=== PATIENT | female | born 1990 | race Caucasian/White ===

== ENCOUNTER 2017-01-18 21:01 | Emergency (ER) | payer OTHER ==
[2017-01-18] MEDS ORDERED: SODIUM CHLORIDE 0.9% 1,000 ML IV STA (21:40)
[2017-01-18 22:05] LABS: Appearance,Urine Cloudy (Clear); Bilirubin,Urine Negative (Negative); Glucose,Urine (UA) Negative (Negative); Ketones,Urine Negative (Negative); Leukocyte Esterase,Urine Negative (Negative); Mucus,Urine Rare /hpf; Nitrite,Urine Negative (Negative); Particle Count 5043; Protein,Urine Negative (Negative); RBC,Urine 1 /hpf (0-5); Specific Gravity,Urine 1.015 (1.001-1.035); Squamous Epithelial Cell,Urine 11 /hpf (0-4); UA Billing (MACRO vs. MICRO) MICRO; Urobilinogen,Urine <2.0 mg/dL (<2.0); WBC,Urine 1 /hpf (0-5)
[2017-01-18 22:12] LABS: Basophils # (A) 0.1 k/uL (0-0.2); Basophils % (A) 1 %; CH 32.4; CHCM 35.2; Eosinophils # (A) 0.5 k/uL (0-0.7); Eosinophils % (A) 4 %; HCT 38.5 % (34.0-46.0); HGB 13.1 gm/dL (11.4-16.0); Luc # (Auto) 0.18; Luc % (Auto) 2; Lymphocytes # (A) 2.7 k/uL (1.0-4.8); Lymphocytes % (A) 21 %; MCH 31.5 pg (25.0-35.0); MCHC 34.1 g/dL (31.0-37.0); MCV 92.5 fL (80.0-100.0); Mean Platelet Volume 8.1; Monocytes # (A) 0.5 k/uL (0-1.0); Monocytes % (A) 4 %; Neutrophils # (A) 8.5 k/uL (1.3-7.7); Neutrophils % (A) 68 %; RBC 4.16 m/uL (3.80-5.40); RDW 13.3 % (11.5-15.5); WBC 12.4 k/uL (3.8-10.6); WBC (Perox) 12.51
--- NOTE | 2017-01-18 22:13 | ED ---
General Adult HPI - General Chief complaint: Abdominal Pain Stated complaint: left flank pain; 14 weeks Time Seen by Provider: 01/18/17 21:32 Source: patient, RN notes reviewed Mode of arrival: ambulatory Limitations: no limitations - History of Present Illness Initial comments: 26-year-old female presents to the emergency department with a chief complaint of left upper quadrant abdominal pain. Patient states this started today. Patient states just this aching pain and left upper quadrant. Patient states she had a normal bowel movement today. There is no nausea or vomiting. Patient states she is 14 weeks she has had a confirmed IUP. She denies any lower abdominal cramping any vaginal bleeding. She denies any nausea or vomiting. Patient was concerned due to her symptoms so she thought that she should be evaluated. Patient denies any recent fever, chills, shortness of breath, chest pain, back pain, nausea vomiting, numbness or tingling, dysuria or hematuria, constipation or diarrhea, headaches or visual changes, or any other current symptoms. - Related Data Home Medications Medication Instructions Recorded Confirmed No Known Home Medications [No 01/18/17 01/18/17 Known Home Medications] Allergies Allergy/AdvReac Type Severity Reaction Status Date / Time No Known Allergies Allergy Verified 01/18/17 21:04 Review of Systems ROS Statement: Those systems with pertinent positive or pertinent negative responses have been documented in the HPI. ROS Other: All systems not noted in ROS Statement are negative. Past Medical History Past Medical History: No Reported History History of Any Multi-Drug Resistant Organisms: None Reported Past Surgical History: No Surgical Hx Reported Past Psychological History: No Psychological Hx Reported Smoking Status: Current every day smoker Past Alcohol Use History: None Reported Past Drug Use History: Marijuana General Exam - General Exam Comments Initial Comments: General: The patient is awake and alert, in no distress, and does not appear acutely ill. Eye: Pupils are equal, round and reactive to light, extra-ocular movements are intact; there is normal conjunctiva bilaterally. No signs of icterus. Ears, nose, mouth and throat: There are moist mucous membranes and no oral lesions. Neck: The neck is supple, there is no tenderness. Cardiovascular: There is a regular rate and rhythm. No murmur, rub or gallop is appreciated. Respiratory: Lungs are clear to auscultation, respirations are non-labored, breath sounds are equal. No wheezes, stridor, rales, or rhonchi. Gastrointestinal: Soft, non-distended, non-tender abdomen without masses or organomegaly noted. There is no rebound or guarding present. No CVA tenderness. Bowel sounds are unremarkable. Back: There is no tenderness to palpation in the midline. There is no obvious deformity. No rashes noted. Musculoskeletal: Normal ROM, no tenderness, There is no pedal edema. There is no calf tenderness or swelling. Sensation intact. Pulses equal bilaterally 2+. Neurological: CN II-XII intact, There are no obvious motor or sensory deficits. Coordination appears grossly intact. Speech is normal. Skin: Skin is warm and dry and no rashes or lesions are noted. Psychiatric: Cooperative, appropriate mood & affect, normal judgment. Limitations: no limitations Course Vital Signs 01/18/17 01/18/17 21:04 22:18 Temperature 98.6 F 98.1 F Pulse Rate 100 75 Respiratory 20 16 Rate Blood Pressure 170/77 119/64 O2 Sat by Pulse 100 97 Oximetry Medical Decision Making - Medical Decision Making 26-year-old female presents emergency room chief complaint of left upper quadrant abdominal pain. At this time patient's lab work is been reviewed. At this time we did discuss possible causes of the patient's abdominal pain. At this time we discussed. With her RO[facility] CONSULTANT as well as a family care doctor return parameters all the questions. She stated that she understood. Plan. This time she will be discharged home. - Lab Data Result diagrams: 01/18/17 22:02 01/18/17 22:02 Lab Results 01/18/17 01/18/17 01/18/17 Range/Units 21:57 22:02 22:02 WBC 12.4 H (3.8-10.6) k/uL RBC 4.16 (3.80-5.40) m/uL Hgb 13.1 (11.4-16.0) gm/dL Hct 38.5 (34.0-46.0) % MCV 92.5 (80.0-100.0) fL MCH 31.5 (25.0-35.0) pg MCHC 34.1 (31.0-37.0) g/dL RDW 13.3 (11.5-15.5) % Plt Count 246 (150-450) k/uL Neutrophils % 68 % Lymphocytes % 21 % Monocytes % 4 % Eosinophils % 4 % Basophils % 1 % Neutrophils # 8.5 H (1.3-7.7) k/uL Lymphocytes # 2.7 (1.0-4.8) k/uL Monocytes # 0.5 (0-1.0) k/uL Eosinophils # 0.5 (0-0.7) k/uL Basophils # 0.1 (0-0.2) k/uL Sodium 138 (137-145) mmol/L Potassium 4.0 (3.5-5.1) mmol/L Chloride 108 H (98-107) mmol/L Carbon Dioxide 18 L (22-30) mmol/L Anion Gap 12 mmol/L BUN 6 L (7-17) mg/dL Creatinine 0.40 L (0.52-1.04) mg/dL Est GFR (MDRD) Af Amer >60 (>60 ml/min/1.73 sqM) Est GFR (MDRD) Non-Af >60 (>60 ml/min/1.73 sqM) Glucose 102 H (74-99) mg/dL Calcium 9.7 (8.4-10.2) mg/dL Total Bilirubin 0.2 (0.2-1.3) mg/dL AST 14 (14-36) U/L ALT 34 (9-52) U/L Alkaline Phosphatase 36 L (38-126) U/L Total Protein 6.6 (6.3-8.2) g/dL Albumin 3.9 (3.5-5.0) g/dL Amylase 31 (30-110) U/L Lipase 49 (23-300) U/L Urine Color Yellow Urine Appearance Cloudy H (Clear) Urine pH 6.0 (5.0-8.0) Ur Specific [place] 1.015 (1.001-1.035) Urine Protein Negative (Negative) Urine Glucose (UA) Negative (Negative) Urine Ketones Negative (Negative) Urine Blood Negative (Negative) Urine Nitrite Negative (Negative) Urine Bilirubin Negative (Negative) Urine Urobilinogen <2.0 (<2.0) mg/dL Ur Leukocyte Esterase Negative (Negative) Urine RBC 1 (0-5) /hpf Urine WBC 1 (0-5) /hpf Ur Squamous Epith Cells 11 H (0-4) /hpf Urine Mucus Rare H (None) /hpf Disposition Clinical Impression: Left upper quadrant abdominal pain of unknown etiology Disposition: HOME SELF-CARE Condition: Stable Instructions: Abdominal Pain in (ED) Additional Instructions: Please use medication as discussed. Please follow up with family doctor if symptoms have not improved over the next two days. Please return to the emergency room if your symptoms increase or worsen or for any other concerns. Referrals: Rodger Aguilar MD [REFERRING] - 1-2 days Time of Disposition: 22:48
[2017-01-18 22:21] LABS: ALT 34 U/L (9-52); AST 14 U/L (14-36); Alkaline Phosphatase 36 U/L (38-126); Amylase 31 U/L (30-110); Anion Gap 12 mmol/L; Blood Urea Nitrogen 6 mg/dL (7-17); Calcium 9.7 mg/dL (8.4-10.2); Carbon Dioxide 18 mmol/L (22-30); Chloride 108 mmol/L (98-107); Glucose 102 mg/dL (74-99); Non-African American GFR(MDRD) >60 (>60 ml/min/1.73 sqM); Sodium 138 mmol/L (137-145); Total Bilirubin 0.2 mg/dL (0.2-1.3); Total Protein 6.6 g/dL (6.3-8.2)
[2017-01-18 22:22] VITALS: TEMP 98.1
[2017-01-18 23:16] VITALS: BP 129/65; PULSE 77; RESP 18
== END 2017-01-18 23:16 | disposition home or self-care (01) ==
LOC: EC 21:01
DX: O99.89 Other specified diseases and conditions complicating pregnancy, childbirth and the puerperium (principal); R10.12 Left upper quadrant pain; O99.332 Smoking (tobacco) complicating pregnancy, second trimester; F17.200 Nicotine dependence, unspecified, uncomplicated
CPT/HCPCS: 36415; 80053; 81001; 82150; 83690; 85025; 87086; 96360; 99284

== ENCOUNTER 2017-06-06 11:43 | Outpatient (CLI) | payer OTHER ==
[2017-06-06 12:05] VITALS: PULSE 96; RESP 16; TEMP 97.1
[2017-06-06 12:41] VITALS: BP 137/76
[2017-06-06 13:23] LABS: HCT 39.3 % (34.0-46.0); HGB 12.8 gm/dL (11.4-16.0); MCH 31.1 pg (25.0-35.0); MCHC 32.6 g/dL (31.0-37.0); MCV 95.3 fL (80.0-100.0); Mean Platelet Volume 8.8; Platelet Count 198 k/uL (150-450); RBC 4.12 m/uL (3.80-5.40); RDW 14.4 % (11.5-15.5); WBC 12.6 k/uL (3.8-10.6)
[2017-06-06 13:36] LABS: ALT 27 U/L (9-52); AST 13 U/L (14-36); Uric Acid 5.4 mg/dL (3.7-7.4)
--- NOTE | 2017-07-03 10:02 | P.MSEPDOC ---
Presenting Problems - Arrival Data Date of Arrival on Unit: 06/06/17 Time of Arrival on Unit: 11:43 Mode of Transport: Ambulatory - Complaint OB-Reason for Admission/Chief Complaint: Decreased Movement Comment: pt here for decreased movement since 529 this am Medical History - Information : 1 Para: 0 Term: 0 : 0 Abortions: Spontaneous or Elective: 0 Number of Living Children: 0 - Gestational Age Gestational Age by DEJUAN (wks/days): 33 Weeks and 6 Days - History Complications: Smoker Comment: pt being screened for increased bps, collected a 24 hour urine that will go to outpatient lab while pt is here in triage, pt denies king/blurred vision/epigastric pain Review of Systems - Review of Systems Constitutional: No problems Breast: No problems ENT: No problems Cardiovascular: No problems Respiratory: No problems Gastrointestinal: No problems Genitourinary: No problems Musculoskeletal: No problems Neurological: No problems Skin: No problems Vital Signs - Temperature Temperature: 97.1 F Temperature Source: Temporal Artery Scan - Pulse Right Brachial Pulse Rate: 96 Pulse Assessment Method: Automatic Cuff - Respirations Respiratory Rate: 16 Oxygen Delivery Method: Room Air O2 Sat by Pulse Oximetry: 97 - Blood Pressure Right Arm Blood Pressure: 137/76 Blood Pressure Mean: 96 Blood Pressure Source: Automatic Cuff Medical Screen Scoring (Pre) - Cervical Exam Dilation: Exam Deferred Effacement: Exam Deferred Membranes: Intact - Uterine Contractions Frequency: > 5 minutes apart = 1 Duration: > 40 seconds = 2 Intensity: N/A - Maternal Vital Signs Maternal Temperature: N/A Maternal Blood Pressure: N/A Signs of Preeclampsia: N/A Maternal Respirations: N/A - Pain Assessment Pain Scale Used: Numeric (1 - 10) Pain Intensity: 0 - Maternal Trauma Maternal Trauma: N/A - Total Score Total Score (Pre): 3 - Level of Risk Level of Risk: Low (0-5) Physician Notification (Pre) - Physician Notified Physician Notified Date: 06/06/17 Physician Notified Time: 12:37 Physician/Practitioner Notifed:: Dr Casanova Spoke With: Dr Casanova New Order Received: Yes (lab work) - Notification Comment Comment: orders given for [facility] lab work, pt is ok to be dcd after labs are drawn and does not need to wait for results Medical Screen Scoring (Post) - Cervical Exam Dilation: Exam Deferred Effacement: Exam Deferred Membranes: Intact - Uterine Contractions Frequency: > 5 minutes apart = 1 Duration: > 40 seconds = 2 Intensity: N/A - Maternal Vital Signs Maternal Temperature: N/A Maternal Blood Pressure: N/A Signs of Preeclampsia: N/A Maternal Respirations: N/A - Pain Assessment Pain Intensity: 0 - Assessment Heart Rate: 135 Heart Rate - NICHD Category: Category I (Normal) = 0 NST: Reactive Position: N/A Station: N/A - Total Score Total Score (Post): 3 - Post Treatment Level of Risk Post Treatment Level of Risk: Low (0-5) Disposition - Disposition OB Disposition: Discharge to home, Written follow up instructions reviewed Discharge Date: 06/06/17 Discharge Time: 13:00 I agree with the RN Medical Screening Exam: Yes Risk & Benefit of care provided described in d/c instruction: Yes Diagnosis: DECREASED MOVEMENTS, THIRD TRIMESTER, FETUS 1
== END 2017-06-06 13:00 | disposition home or self-care (01) ==
LOC: FBPOP 11:43
PROVIDERS: ATTEND Obstetrics & Gynecology Obstetrics
DX: O36.8130 Decreased fetal movements, third trimester, not applicable or unspecified (principal); Z3A.33 33 weeks gestation of pregnancy
CPT/HCPCS: 59025; 82565; 84450; 84460; 84550; 85027; G0463; 36415; 81050; 82575; 84156; 99215

== ENCOUNTER → 2017-06-06 | Outpatient (CLI) | payer OTHER ==
[2017-06-06 15:14] LABS: Collection Time,Urine 24 hrs
[2017-06-06 15:15] LABS: Total Volume 24 Hour,Urine 1600 mls (800-1800)
[2017-06-06 15:27] LABS: Total Protein 24 Hour,Urine 160 mg/24hr (42.0-225.0)
[2017-06-06 15:28] LABS: Creatinine 24 Hour,Urine 1299.2 mg/24hr (800.0-1800.0)
== END | disposition home or self-care (01) ==
LOC: LABWHC1 12:47
PROVIDERS: ATTEND Obstetrics & Gynecology Obstetrics
DX: O13.3 Gestational [pregnancy-induced] hypertension without significant proteinuria, third trimester (principal); Z3A.33 33 weeks gestation of pregnancy
CPT/HCPCS: 36415; 81050; 82575; 84156

== ENCOUNTER 2017-06-20 19:55 | Observation (INO) | payer OTHER ==
[2017-06-20] MEDS ORDERED: BETAMET ACET-BETAMETH SOD PHOS 6 MG/ML VIAL IM SCH (20:30)
[2017-06-20 20:56] LABS: Appearance,Urine Cloudy (Clear); Bacteria,Urine Rare /hpf; Bilirubin,Urine Negative (Negative); Blood,Urine Negative (Negative); Color,Urine Yellow; Glucose,Urine (UA) 4+ (Negative); Leukocyte Esterase,Urine Trace (Negative); Mucus,Urine Rare /hpf; Nitrite,Urine Negative (Negative); PH, Urine 6.5 (5.0-8.0); Protein,Urine 2+ (Negative); RBC,Urine 5 /hpf (0-5); Specific Gravity,Urine 1.028 (1.001-1.035); Squamous Epithelial Cell,Urine 22 /hpf (0-4); WBC,Urine 5 /hpf (0-5)
[2017-06-20 21:31] VITALS: RESP 16
[2017-06-20 21:35] LABS: Basophils % (A) 0 %; Eosinophils # (A) 0.2 k/uL (0-0.7); Eosinophils % (A) 1 %; HCT 38.3 % (34.0-46.0); HGB 12.7 gm/dL (11.4-16.0); Lymphocytes # (A) 2.8 k/uL (1.0-4.8); Lymphocytes % (A) 21 %; MCHC 33.2 g/dL (31.0-37.0); MCV 93.3 fL (80.0-100.0); Mean Platelet Volume 8.6; Monocytes # (A) 0.5 k/uL (0-1.0); Monocytes % (A) 4 %; Neutrophils # (A) 9.6 k/uL (1.3-7.7); Neutrophils % (A) 72 %; Platelet Count 226 k/uL (150-450); RDW 13.5 % (11.5-15.5); WBC 13.3 k/uL (3.8-10.6)
[2017-06-20 21:41] LABS: Ketones,Urine 2+ (Negative)
[2017-06-20 21:50] LABS: INR 0.9 (<1.2); Prothrombin Time 9.3 sec (9.0-12.0)
[2017-06-20 21:58] LABS: Partial Thromboplastin Time 21.2 sec (22.0-30.0)
[2017-06-20] MEDS ORDERED: ACETAMINOPHEN TAB 325 MG TAB PO PRN (23:01)
[2017-06-20 23:14] VITALS: BMI 49.2
[2017-06-21 04:14] VITALS: BP 147/75; PULSE 74; TEMP 97.5
[2017-06-21] MEDS ORDERED: BETAMET ACET-BETAMETH SOD PHOS 6 MG/ML VIAL IM SCH (08:30)
--- NOTE | 2017-06-21 09:07 | P.HPOB ---
History of Present Illness H&P Date: 06/21/17 Chief Complaint: Pelvic pressure This is a 26-year-old white female 1 para 0 EDC 07/19/2017 who presented at 35-6/7 weeks' gestation. Patient states she is having increased pelvic pressure. She denies vaginal bleeding, recent intercourse, or regular uterine contractions. Fetus is been active throughout the . She denies headache, visual changes, or right upper quadrant pain. has been remarkable for intermittent -induced hypertension. Recent 24- hour urine was within normal limits. Past medical history is essentially negative with the exception of obesity. Past surgical history negative. Current medications vitamins. ALLERGIES none known. Social history patient is single, she admits to one half pack per day tobacco for 13 years. She also admits to marijuana use since the age of 13, last smoked several weeks ago. She denies alcohol use, or other illicit drug use. Past obstetric history is significant for what I suspect is chronic hypertension. Patient has a blood pressure cuff at home but does not take her blood pressures. Family history is essentially unremarkable. On exam she is 5 foot 4 inches, 284 pounds. Initial blood pressure in the triage area last night was 160s over 80s. For this reason, patient was admitted for 23 hour observation. Blood pressures since that time have ranged from the 120s to the 150s over 70s. Preeclamptic labs have all been done and are within normal limits. Initial UA revealed 2+ protein. Her chest is clear in all pa. The physical exam is significant for multiple tattoos as well as obesity. Cervix is 1 cm, 50%, -3, vertex, posterior. heart rate is consistent with reactive NST. Patient has +1 peripheral edema and normal to plus reflexes. Impression: 36 week intrauterine , suspect chronic hypertension. Betamethasone given last night with repeat dose this morning. Plan: Patient states she will begin taking her blood pressures at home and bring them to Dr. Avila for review on Friday which is her next scheduled appointment. She will go home with a 24-hour urine drug and collect another 24-hour sample. I have reminded her to call us or return to the hospital with any headache, visual changes, right upper quadrant pain. She will monitor activity as well and call with any decreased perceived activity. She will call with any blood pressures at home greater than or equal to 160s over 90s. Review of Systems Negative except as in HPI Past Medical History Past Medical History: No Reported History History of Any Multi-Drug Resistant Organisms: None Reported Past Surgical History: No Surgical Hx Reported Past Anesthesia/Blood Transfusion Reactions: No Reported Reaction Past Psychological History: No Psychological Hx Reported Smoking Status: Current some day smoker Past Alcohol Use History: None Reported Past Drug Use History: None Reported, Marijuana - Past Family History Mother Family Medical History: Diabetes Mellitus Medications and Allergies Home Medications Medication Instructions Recorded Confirmed Type No Known Home Medications [No 01/18/17 06/20/17 History Known Home Medications] Allergies Allergy/AdvReac Type Severity Reaction Status Date / Time No Known Allergies Allergy Verified 06/20/17 20:16 Exam - Vital Signs Vital signs: Vital Signs Temp Pulse Resp BP Pulse Ox 06/21/17 04:00 97.5 F L 74 16 147/75 97 06/20/17 23:55 97.0 F L 78 16 136/75 96 06/20/17 22:53 96.5 F L 91 16 160/88 97 06/20/17 22:30 91 16 06/20/17 22:06 96.5 F L 91 16 160/88 97 06/20/17 20:24 97.3 F L 101 H 16 169/86 06/20/17 20:01 97.3 F L 103 H 18 169/86 98 Intake and Output 06/20/17 06/21/17 06/21/17 22:59 06:59 14:59 Other: Voiding Method Toilet # Voids 1 Weight 130.181 kg Results Result Diagrams: 06/20/17 21:27 Abnormal Lab Results - Last 24 Hours (Table) 06/20/17 06/20/17 06/20/17 Range/Units 20:40 21:27 21:27 WBC 13.3 H (3.8-10.6) k/uL Neutrophils # 9.6 H (1.3-7.7) k/uL APTT 21.2 L (22.0-30.0) sec AST (14-36) U/L Urine Appearance Cloudy H (Clear) Urine Protein 2+ H (Negative) Urine Glucose (UA) 4+ H (Negative) Urine Ketones 2+ H (Negative) Ur Leukocyte Esterase Trace H (Negative) Ur Squamous Epith Cells 22 H (0-4) /hpf Urine Bacteria Rare H (None) /hpf Urine Mucus Rare H (None) /hpf 06/20/17 Range/Units 21:27 WBC (3.8-10.6) k/uL Neutrophils # (1.3-7.7) k/uL APTT (22.0-30.0) sec AST 13 L (14-36) U/L Urine Appearance (Clear) Urine Protein (Negative) Urine Glucose (UA) (Negative) Urine Ketones (Negative) Ur Leukocyte Esterase (Negative) Ur Squamous Epith Cells (0-4) /hpf Urine Bacteria (None) /hpf Urine Mucus (None) /hpf Assessment and Plan Plan: Patient to begin her pressure checks at home twice daily, she will write them down and bring them to the office for review. She will call with any blood pressures greater than or equal to 160s over 90s, with any fevers shakes or chills, headache, visual changes right upper quadrant pain or decreased activity. Follow-up with Dr. Avila in 2 days as scheduled. Continue 24-hour urine collection and submit when completed. Time with Patient: Greater than 30
--- NOTE | 2017-06-21 09:09 | P.DS ---
Providers Date of admission: 06/20/17 22:17 Expected date of discharge: 06/21/17 Attending physician: Heidi Casanova Primary care physician: Stated None Hospital Course: This is a 26-year-old 1 para 0 at 36 weeks' gestation who presented with pelvic pressure. Initial evaluation revealed an elevated blood pressure of 160s over 90s. PIH labs have all been performed and are negative. 24 urine collection has been started. Blood pressures have now stabilized, 120s to 150s over 70s. Reactive NST is noted. Betamethasone has been given 2 prophylactically. Please see full dictation under my history and physical. Patient will be discharged home today. She will begin taking her blood pressures twice daily at home and has a blood pressure cuff with which she is familiar. She will monitor activity. She will call with any visual changes, right upper quadrant pain, headaches or indeed with any concerns. She has an appointment to see Dr. Avila in 2 days which she will keep. A 24 urine collection has been started and she will submit it to the hospital when complete. Patient Condition at Discharge: Good Plan - Discharge Summary New Discharge Prescriptions: No Action No Known Home Medications [No Known Home Medications] Discharge Medication List No Known Home Medications [No Known Home Medications] 01/18/17 [History]
== END 2017-06-21 09:15 | disposition home or self-care (01) ==
LOC: FBPOP 19:55 → 4FBP 22:17
PROVIDERS: ADMIT Obstetrics & Gynecology; ATTEND Obstetrics & Gynecology Obstetrics
DX: O26.93 Pregnancy related conditions, unspecified, third trimester (principal); R03.0 Elevated blood-pressure reading, without diagnosis of hypertension; R60.0 Localized edema; O99.213 Obesity complicating pregnancy, third trimester; E66.9 Obesity, unspecified; Z68.42 Body mass index [BMI] 45.0-49.9, adult; Z3A.36 36 weeks gestation of pregnancy; O99.333 Smoking (tobacco) complicating pregnancy, third trimester; F17.200 Nicotine dependence, unspecified, uncomplicated; Z83.3 Family history of diabetes mellitus
CPT/HCPCS: 59025; 96372 ×2; 84450; 84460; 84550; 85025; 85610; 85730; 81001; G0378 ×2; G0463; J0702 ×2; 99213

== ENCOUNTER → 2017-06-21 | Outpatient (CLI) | payer OTHER | LOC: CANPRECLI → RADXRMAIN 20:55 | PROVIDERS: ATTEND Obstetrics & Gynecology | DX: Z53.9 Procedure and treatment not carried out, unspecified reason (principal) ==

== ENCOUNTER 2017-12-19 19:34 | Emergency (ER) | payer OTHER ==
[2017-12-19 20:17] VITALS: TEMP 98.2
--- NOTE | 2017-12-19 21:05 | XR ---
EXAMINATION TYPE: XR shoulder complete LT DATE OF EXAM: 12/19/2017 COMPARISON: NONE HISTORY: Shoulder pain TECHNIQUE: 3 views FINDINGS: There is calcification at the greater tuberosity that measures 2 cm. I see no fracture nor dislocation. Joint spaces are normal. IMPRESSION: Calcific tendinitis. No fracture seen.
--- NOTE | 2017-12-19 22:05 | ED ---
General Adult HPI - General Chief complaint: Extremity Injury, Upper Stated complaint: Shoulder pain Time Seen by Provider: 12/19/17 20:48 Source: patient, family Mode of arrival: ambulatory Limitations: no limitations - History of Present Illness Initial comments: 27-year-old female presents to the emergency determine for chief complaint of left shoulder pain that started 5 days ago. Patient states she had noticed the pain for a couple days but it worsened when she was at work lifting a box. Patient states it was worse today after she woke up. Patient states lifting her arm out is the most painful. Patient denies any other injuries. Patient denies any neck or back pain. Patient has no other complaints at this time including shortness of breath, chest pain, abdominal pain, nausea or vomiting, headache, or visual changes. - Related Data Home Medications Medication Instructions Recorded Confirmed Acetaminophen Tab [Tylenol Tab] 650 mg PO Q6H PRN 12/19/17 12/19/17 Previous Rx's Medication Instructions Recorded Ibuprofen [Motrin] 600 mg PO Q6HR PRN #20 tab 12/19/17 Allergies Allergy/AdvReac Type Severity Reaction Status Date / Time No Known Allergies Allergy Verified 12/19/17 20:59 Review of Systems ROS Statement: Those systems with pertinent positive or pertinent negative responses have been documented in the HPI. ROS Other: All systems not noted in ROS Statement are negative. Past Medical History Past Medical History: No Reported History History of Any Multi-Drug Resistant Organisms: None Reported Past Surgical History: Section Past Anesthesia/Blood Transfusion Reactions: No Reported Reaction Past Psychological History: No Psychological Hx Reported Smoking Status: Current some day smoker Past Alcohol Use History: None Reported Past Drug Use History: None Reported, Marijuana - Past Family History Mother Family Medical History: Diabetes Mellitus General Exam Limitations: no limitations General appearance: alert, in no apparent distress Head exam: Present: atraumatic, normocephalic, normal inspection Eye exam: Present: normal appearance ENT exam: Present: normal exam, mucous membranes moist Neck exam: Present: normal inspection, full ROM. Absent: tenderness, meningismus, lymphadenopathy Respiratory exam: Present: normal lung sounds bilaterally. Absent: respiratory distress, wheezes, rales, rhonchi, stridor Cardiovascular Exam: Present: regular rate, normal rhythm, normal heart sounds. Absent: systolic murmur, diastolic murmur, rubs, gallop, clicks Extremities exam: Present: tenderness (Tenderness to the anterior and superior shoulder. No tenderness in the rest of the arm or hand.), normal capillary refill (Refill less than 2 seconds and radial pulse 2+ in the left upper extremity), other (Sensation intact in the left upper extremity. ). Absent: full ROM (Patient has about 45 of flexion and abduction of the left shoulder. Full right ear duction.), joint swelling (No swelling or redness noted to the left shoulder) Course Vital Signs 12/19/17 20:14 Temperature 98.2 F Pulse Rate 89 Respiratory 18 Rate O2 Sat by Pulse 98 Oximetry Medical Decision Making - Medical Decision Making 27-year-old female since to the emergency department for chief complaint of left shoulder pain times one week. Patient states she was having pain for couple days and then lifted a box and the pain worsened. On exam patient does have limited range of motion of the left shoulder with 45 abduction and flexion. Neurovascular intact in the left upper extremity. Patient denies any other injuries.X-ray of the left shoulder shows calcific tendinitis at the greater tuberosity that measures 2 cm. No fracture nor dislocation. Patient was educated on gentle stretching as well as taking Motrin for pain. She denies any chance of . Patient was not given a sling as it can make his condition worse. Patient will follow up with primary care or orthopedics in one to 2 days. Disposition Clinical Impression: Calcific tendinitis, Shoulder pain, left Disposition: HOME SELF-CARE Condition: Good Instructions: Calcific Tendinitis (ED), Shoulder Pain (ED) Additional Instructions: Please take Motrin as directed. Please try to do gentle stretching of the shoulder. Please follow-up with primary care or orthopedics in one to 2 days. Return to the emergency department if you have any worsening symptoms. Prescriptions: Ibuprofen [Motrin] 600 mg PO Q6HR PRN #20 tab PRN Reason: Pain Is patient prescribed a controlled substance at d/c from ED?: No Referrals: Mariano Hong MD [STAFF PHYSICIAN] - 1-2 days Time of Disposition: 22:06
[2017-12-19 22:18] VITALS: BP 158/89; PULSE 75; RESP 20
== END 2017-12-19 22:16 | disposition home or self-care (01) ==
LOC: EC 19:34
DX: M75.32 Calcific tendinitis of left shoulder (principal); F17.200 Nicotine dependence, unspecified, uncomplicated
CPT/HCPCS: 99283